=== PATIENT | male | born 1965 | race African-American/Black ===

== ENCOUNTER 2022-10-30 21:50 | Emergency (ER) | payer MEDICAID ==
[~2022-10-30] VITALS: Ht 185.4 cm; Wt 97.5 kg
[2022-10-30 23:03] VITALS: BP 150/102; TEMP 98.3; O2SAT 99
[2022-10-30] MEDS ORDERED: IBUPROFEN 600 MG TABLET PO ONE (23:30)
[2022-10-30] MEDS ORDERED: METHOCARBAMOL (500MG) 500 MG TABLET PO ONE (23:30)
[2022-10-30] MEDS ORDERED: METHOCARBAMOL (500MG) 500 MG TABLET ONE (23:47)
[2022-10-30] MEDS ORDERED: IBUPROFEN 600 MG TABLET ONE (23:47)
[2022-10-31] MEDS ORDERED: IBUP-1953 PO (00:17)
[2022-10-31] MEDS ORDERED: METH-647 PO (00:17)
== END 2022-10-31 01:21 | disposition home or self-care (01) ==
LOC: ER 21:59
DX: M54.50 Low back pain, unspecified (principal); Z60.2 Problems related to living alone
CPT/HCPCS: 72110-TC

== ENCOUNTER 2022-11-07 02:46 | Emergency (ER) | payer MEDICAID, OTHER ==
[~2022-11-07] VITALS: Ht 185.4 cm; Wt 105.2 kg
[~2022-11-07 02:46] MED LIST: IBUP-1953 PO; METH-647 PO
[2022-11-07] MEDS ORDERED: IBUP-1953 PO (05:12)
[2022-11-07 05:45] VITALS: BP 112/84; TEMP 97.7; O2SAT 97
== END 2022-11-07 05:45 | disposition home or self-care (01) ==
LOC: ER 02:49
DX: S80.01XA Contusion of right knee, initial encounter (principal); Z79.899 Other long term (current) drug therapy; Z60.2 Problems related to living alone; W18.39XA Other fall on same level, initial encounter; Y93.89 Activity, other specified; Y92.89 Other specified places as the place of occurrence of the external cause; Y99.8 Other external cause status
CPT/HCPCS: 73564-TC

== ENCOUNTER 2022-11-23 18:11 | Emergency (ER) | payer OTHER ==
[~2022-11-23] VITALS: Ht 175.3 cm; Wt 86.2 kg
[2022-11-23 18:32] VITALS: BP 131/83; TEMP 98.9; O2SAT 98
[2022-11-23] MEDS ORDERED: IBUPROFEN 600 MG TABLET PO ONE (20:30)
[2022-11-23] MEDS ORDERED: IBUPROFEN 600 MG TABLET ONE (20:30)
== END 2022-11-23 20:37 | disposition home or self-care (01) ==
LOC: ER 18:16
DX: M25.561 Pain in right knee (principal); Z79.899 Other long term (current) drug therapy; Z60.2 Problems related to living alone
CPT/HCPCS: 73700-TC

== ENCOUNTER 2023-01-20 16:49 | Emergency (ER) | payer OTHER ==
[~2023-01-20] VITALS: Ht 185.4 cm; Wt 99.3 kg
[2023-01-20] MEDS ORDERED: CYCLOBENZAPRINE 10 MG TABLET ONE (17:33)
[2023-01-20] MEDS ORDERED: IBUPROFEN 400 MG TABLET ONE (17:33)
[2023-01-20] MEDS ORDERED: ACETAMINOPHEN ES 500 MG TABLET ONE (17:33)
[2023-01-20] MEDS ORDERED: GABAPENTIN 300 MG CAPSULE ONE (17:34)
[2023-01-20] MEDS: CYCLOBENZAPRINE 10 MG TABLET PO ONE (17:46)
[2023-01-20] MEDS: GABAPENTIN 100 MG CAPSULE PO ONE (17:46)
[2023-01-20] MEDS: ACETAMINOPHEN ES 500 MG TABLET PO ONE (17:46)
[2023-01-20] MEDS: IBUPROFEN 400 MG TABLET PO ONE (17:46)
[2023-01-20] MEDS ORDERED: KETO10TA2 PO (18:41)
[2023-01-20] MEDS ORDERED: CYCL5TAB PO (18:41)
[2023-01-20] MEDS ORDERED: GABA-536 PO (18:41)
[2023-01-20 18:49] VITALS: BP 134/78; TEMP 98.7; O2SAT 100
== END 2023-01-20 18:49 | disposition home or self-care (01) ==
LOC: ER 16:49
DX: M54.41 Lumbago with sciatica, right side (principal); R20.2 Paresthesia of skin; Z79.899 Other long term (current) drug therapy; Z60.2 Problems related to living alone

== ENCOUNTER 2023-05-28 21:00 | Emergency (ER) | payer OTHER ==
[~2023-05-28] VITALS: Ht 185.4 cm; Wt 97.5 kg
[~2023-05-28 21:00] MED LIST changes: +CYCL5TAB PO; +GABA-536 PO; +KETO10TA2 PO
[2023-05-28 21:21] VITALS: BP 117/85; TEMP 98.5; O2SAT 99
== END 2023-05-28 21:55 | disposition home or self-care (01) ==
LOC: ER 21:03
DX: J30.9 Allergic rhinitis, unspecified (principal); Z79.899 Other long term (current) drug therapy; Z60.2 Problems related to living alone

== ENCOUNTER 2023-06-26 16:41 | Emergency (ER) | payer OTHER ==
[~2023-06-26] VITALS: Ht 185.4 cm; Wt 118.4 kg
[2023-06-26 18:50] VITALS: BP 134/87; TEMP 98.5; O2SAT 100
== END 2023-06-26 18:50 | disposition home or self-care (01) ==
LOC: ER 16:44
DX: H60.91 Unspecified otitis externa, right ear (principal); Z60.2 Problems related to living alone; Z79.899 Other long term (current) drug therapy
CPT/HCPCS: 99283; A6403

== ENCOUNTER 2023-09-12 22:30 | Emergency (ER) | payer OTHER ==
[~2023-09-12] VITALS: Ht 185.4 cm; Wt 97.5 kg
[2023-09-12 22:55] VITALS: BP 146/90; TEMP 98.4; O2SAT 100
== END 2023-09-13 00:15 | disposition home or self-care (01) ==
LOC: ER 22:34
DX: G89.29 Other chronic pain (principal); M79.604 Pain in right leg; Z79.899 Other long term (current) drug therapy; Z60.2 Problems related to living alone

== ENCOUNTER 2024-05-30 16:03 | Emergency (ER) | payer OTHER ==
[~2024-05-30] VITALS: Ht 185.4 cm; Wt 97.5 kg
[2024-05-30] MEDS ORDERED: KETOROLAC TROMETHAMINE 15 MG/ML VIAL ONE (16:27)
[2024-05-30] MEDS: KETOROLAC TROMETHAMINE 15 MG/ML VIAL IM ONE (16:30)
[2024-05-30 17:47] VITALS: BP 133/85; TEMP 98.5; O2SAT 99
== END 2024-05-30 17:48 | disposition home or self-care (01) ==
LOC: ER 17:19
DX: M79.671 Pain in right foot (principal); Z79.899 Other long term (current) drug therapy; Z60.2 Problems related to living alone
CPT/HCPCS: 99283; 96372; 73630; J1885